=== PATIENT | female | born 1940 | race Caucasian/White ===

== ENCOUNTER 2016-10-02 13:34 | Observation (INO) | payer MEDICARE, OTHER ==
[~2016-10-02] VITALS: Ht 160 cm; Wt 91.7 kg
[2016-10-07] MEDS ORDERED: NEXIUM40 MG PO (08:55)
[2016-10-07] MEDS ORDERED: XANAX0.5 MG PO (08:55)
[2016-10-07] MEDS ORDERED: PRADAXA150 MG PO (08:55)
[2016-10-07] MEDS ORDERED: DICYCLOMINE HCL20 MG PO ×2 (08:56)
[2016-10-07] MEDS ORDERED: TOPROL XL25 MG PO (08:56)
[2016-10-07] MEDS ORDERED: ACETAMINOPHEN325 MG PO (08:57)
== END 2016-10-05 11:55 | disposition home or self-care (01) ==
LOC: ER 13:34 → MED 16:44
PROVIDERS: ADMIT Internal Medicine
DX: I95.9 Hypotension, unspecified (principal); J00 Acute nasopharyngitis [common cold]; I48.91 Unspecified atrial fibrillation; I10 Essential (primary) hypertension; N17.9 Acute kidney failure, unspecified; B34.9 Viral infection, unspecified; K21.9 Gastro-esophageal reflux disease without esophagitis; F41.9 Anxiety disorder, unspecified; Z88.0 Allergy status to penicillin; Z79.899 Other long term (current) drug therapy; Z95.0 Presence of cardiac pacemaker
CPT/HCPCS: 36415; 87486; 87581; 87633; 87798; 93306; 96360; 96361; G0378